=== PATIENT | male | born 1960 | race Caucasian/White ===

== ENCOUNTER 2023-03-08 08:02 | Emergency (ER) | payer BC, MEDICARE, SELFPAY ==
--- NOTE | 2023-03-08 08:23 | ED.WOUNDLAC ---
HPI - Wound/Laceration General Chief Complaint: Wound/Laceration Stated Complaint: Left hand finger burn Time Seen by Provider: 03/08/23 08:23 Source: patient Mode of arrival: ambulatory Limitations: no limitations History of Present Illness HPI narrative: 62 y/o male presented for c/o wounds to middle and ring fingertips on left hand after injury today. States he slipped on kitchen floor, and touched his hand on the hot stove. States skin turned white immediately. Skin is intact. He applied silver sulfadiazine cream to the site prior to arrival. Denies numbness, tingling, weakness or decreased ROM to hand/fingers. Rates pain 10. Related Data Home Medications Medication Instructions Recorded Confirmed hydrocodone 10 mg-acetaminophen tablet 03/08/23 325 mg tablet levothyroxine 100 mcg tablet mcg 03/08/23 losartan 25 mg tablet mg 03/08/23 pantoprazole 40 mg tablet,delayed mg PO 03/08/23 release simvastatin 20 mg tablet mg 03/08/23 Allergies Allergy/AdvReac Type Severity Reaction Status Date / Time morphine Allergy Intermediate Itching Verified 03/08/23 08:18 Review of Systems Review of Systems: CONSTITUTIONAL: Denies body aches, fever, chills, or sweats. EYES: Denies visual changes, redness, or discharge. ENT: Denies rhinorrhea, congestion CARDIOVASCULAR: Denies chest pain, palpitations, or edema. RESPIRATORY: Denies cough or dyspnea. GASTROINTESTINAL: Denies abdominal pain, nausea, vomiting, or diarrhea. SKIN: per HPI MUSCULOSKELETAL: Denies back pain, joint pain, or myalgia. NEUROLOGIC: Denies headache, numbness, tingling, or weakness. [facility] Past Medical History Medical History (Updated 03/08/23 @ 09:46 by Hilda Parikh APRN) Hypertension Surgical History Surgical History (Updated 03/08/23 @ 09:42 by Hilda Parikh APRN) History of carpal tunnel surgery History of repair of right rotator cuff History of total bilateral knee replacement Status post bilateral total hip replacement Comments At time of signature, I have reviewed and agree with nursing past medical, surgical, social and family history unless otherwise noted. Please see nursing chart for further information. There is no relevant family history pertinent to the presenting complaint Exam Narrative: GENERAL: Well-appearing HEAD: Normocephalic, atraumatic. EYES: conjunctivae clear, and EOMI. ENT: Mucous membranes moist. Oropharynx without edema, erythema or lesions. NECK: Supple. No lymphadenopathy CHEST: Clear to auscultation. HEART: Regular rate and rhythm. SKIN: Warm, dry. Left 3rd finger with 1.5x1cm diameter white blister/burn to distal tip, not raised or fluid filled; left 4th finger distal tip with approx 0.5cm diameter white/pink blister/burn, no fluid noted, skin intact NEURO: Alert and oriented x3. Course Course Emergency Course: Patient is aware of diagnosis, understands and agrees to treatment plan. Anticipatory guidance given. Patient agrees to follow-up as directed and is aware of reasons to seek care at the emergency department. Portions of this record may have been created with voice recognition software Level of Care: Express Care Visit Vital Signs Vital signs: Vital Signs Temperature 98.6 F 03/08/23 09:16 Pulse Rate 73 03/08/23 09:16 Respiratory Rate 18 03/08/23 09:16 Blood Pressure 135/92 H 03/08/23 09:16 Pulse Oximetry 99 03/08/23 09:16 Temperature 98.6 F 03/08/23 09:16 Pulse Rate 73 03/08/23 09:16 Respiratory Rate 18 03/08/23 09:16 Blood Pressure 135/92 H 03/08/23 09:16 Pulse Oximetry 99 03/08/23 09:16 Reviewed Procedures Orthopedic Splinting/Casting 3rd and 4th digits left hand: Upper Extremity Immobilizer: aluminum form splint (curved 1.5 inch) MDM - Wound/Laceration MDM Narrative Medical decision making narrative: Discussed physical exam findings. Sites cleansed with wound cleanser. Applied finger tip alumin
[2023-03-08] MEDS: TETANUS,DIPHTHERIA,AC PERTUSSIS ADULT (0.5 ML) BOOSTRIX IM (08:50)
[2023-03-08 09:16] VITALS: BP 135/92; PULSE 73; RESP 18; TEMP 37; O2SAT 99
== END 2023-03-08 09:05 | disposition home or self-care (01) ==
PROVIDERS: Emergency Provider Nurse Practitioner Family; PCP Internal Medicine
DX: T23.232A Burn of second degree of multiple left fingers (nail), not including thumb, initial encounter (principal); X15.0XXA Contact with hot stove (kitchen), initial encounter; Z23 Encounter for immunization; I10 Essential (primary) hypertension
CPT/HCPCS: 29130 ×2; 90471; 90715; 99213; G0463

== ENCOUNTER 2025-06-29 01:45 | Emergency (ER) | payer MEDICARE, SELFPAY ==
--- OUTSIDE RECORDS SUMMARY | 2025-06-29 01:48 | XMS_ITS | Clinical Summary ---
Author Organization [facility] Address [address] [place] [address] Care Team Providers Care Seo Assistant Name Role Phone Unavailable Primary Care Provider Unavailabl e Source Comments [facility],non-owned Affiliates and Associated Physician Practices is amultiple site organization consisting of ambulatory clinics and hospital sitesin [place], [place], [place] and [place]. This disclosure is being madepursuant to the Care Everywhere program and may not contain all information available regarding this patient. Last updated 18.[facility] Encounters Date Type Department Care Team Description 05/24/2025 Lab Requisition [facility] - DermPath Lab [address] [place] [address] Cherelle Cesar MD from Last 3 Months Social History Tobacco Use Types Packs/Day Years Used Date Smoking Tobacco: Never Assessed Sex and Gender Information Value Date Recorded Sex Assigned at Not on file Legal Sex Male 10:39 AM CDT Gender Identity Not on file Sexual Orientation Not on file Plan of Treatment Health Maintenance Due Date Last Done Comments COLOGUARD (AGES 45-75) - COL ON CA SCREENING 1958 COLON MONITORING 1958 COLONOSCOPY - COLON CA SCREENING 1958 CT COLONOGRAPHY - COLON CA SCREENING 1958 Colorectal Cancer Screening 1958 FIT - COLON CA SCREENING 1958 FLEX SIG - COLON CA SCREENING 1958 LIPID TESTING 1958 MEDICARE AWV 12 MONTHS 1958 HEPATITIS C SCREENING 05/08/1976 DTAP/TDAP/TD VACCINES (1 - Tdap) 1977 PNEUMOCOCCAL VACCINE 50+ (1 of 1 - PCV) 2008 ZOSTER VACCINE (1 of 2) 2008 DEPRESSION SCREENING 10/06/2024 COVID-19 VACCINE (2023-2 5 season) 2025 INFLUENZA VACCINE (#1) 2025 Respiratory Syncytial Virus (RSV) Vaccine Pt: or over 60 yrs (1 - 1-dose 75+ series) 2033 HEPATITIS B VACCINE Aged Out No longe r eligible based on patient's age to complete this topic HIB VACCINE Aged Out No longer eligi ble based on patient's age to complete this topic HPV VACCINE Aged Out No longer eligi ble based on patient's age to complete this topic MENINGOCOCCAL (Group B) VACC INE SHARED DECISION-MAKING Aged Out No longer eligibl e based on patient's age to complete this topic MENINGOCOCCAL GROUPS A/C/Y/W VACCINE Aged Out No longer eligible b ased on patient's age to complete this topic Procedures Procedure Name Priority Date/Time Associated Diagnosis Comments DERMATOPATHOLOGY Routine 05/24/2025 1:27 PM CDT from Last 3 Months Results * DERMATOPATHOLOGY (05/24/2025 1:27 PM CDT) Case Report Dermatopathology Report Case: [id number] Authorizing Provider: Cherelle Cesar MD Collected: 05/24/2025 01:27 PM Ordering Location: [facility] - Received: 05/25/2025 07:12 AM DermPath Lab Pathologist: Nohelia Elise MD Specimens: A) - Skin, crown B) - Skin, right shoulder 12:51 PM CDT DERMATOPATHOLOGY LABORATORY Final Diagnosis Specimen A. SKIN, crown: SQUAMOUS CELL CARCINOMA IN SITU, PRESENT AT THE BASE OF THE SPECIMEN (D04.4) (see microscopic description and comment) Specimen B. SKIN, right shoulder: HYPERPLASTIC (HYPERTROPHIC) ACTINIC KERATOSIS (L57.0) 12:51 PM CDT DERMATOPATHOLOGY LABORATORY at 1251 CDT Clinical History A: HAK; R/O SCC B: R/O BCC 12:51 PM CDT DERMATOPATHOLOGY LABORATORY Gross Description Specimen A: Received is one formalin filled container labeled with the patient's name and designated crown. The specimen consists of a shave biopsy measuring 2 pieces 5x2x1,4x4x1 mm. Jar 0. Specimen B: Received is one formalin filled container labeled with the patient's name and designated right shoulder. The specimen consists of a shave biopsy measuring 9x7x1 mm. Jar 0. 12:51 PM CDT DERMATOPATHOLOGY LABORATORY Microscopic Description Specimen A. SKIN, crown: The epidermis shows parakeratosis, full thickness disorderly maturation of keratinocytes, mitoses at different levels, and dyskeratotic cells. The lesion extends to the base of the biopsy. COMMENT: An invasive squamous cell carcinoma cannot be ruled out. Specimen B. SKIN, right shoulder: There is hyperkeratosis alternating with parakeratosis. There is epidermal hyperplasia with disorderly maturation of keratinocytes with nuclear pleomorphism confined to the lower half of the epidermis. 12:51 PM CDT DERMATOPATHOLOGY LABORATORY Disclaimer An external and internal positive and negative controls are appropriate for the histochemical, immunohistochemical and immunofluorescence stain(s) in this case (if any), except where stated explicitly. The performance characteristics of the stain(s) cited in this report were developed and its performance characteristic determined by the Dermatopathology Laboratory at [facility], directed by Dr. David Reyes. These tests need not be, and therefore are not, approved by the [place] Food and Drug Administration. The tests are used for clinical purposes. Billing Codes Specimen Charges Stain Charges 42514 75545 1 1 12:51 PM CDT DERMATOPATHOLOGY LABORATORY Embedded Images 12:51 PM CDT DERMATOPATHOLOGY LABORATORY Pathology/Cytology TISSUE SPECIMEN FROM SKIN / Unknown 05/24/2025 1:27 PM CDT 05/25/2025 7:12 AM CDT Miscellaneous samples (specimen) TISSUE SPECIMEN FROM SKIN / Unknown 05/24/2025 1:27 PM CDT 05/25/2025 7:12 AM CDT us Cherelle Cesar MD LAB - PATHOLOGY/CYTOLOGY ORD ERABLES Final Result DERMATOPATHOLOGY LABORATORY [facility] - Department of Dermatology [address], [address] [phone] from Last 3 Months Insurance MEDICARE
--- OUTSIDE RECORDS SUMMARY | 2025-06-29 01:48 | XMS_ITS | Clinical Summary ---
Author Organization [facility] Address [address] [address] Phone Care Team Providers Care Color Repairer Name Role Phone Riccardo Garcia MD Primary Care Provider [phone] Allergies Active Allergy Reactions Criticality Noted Date Comments Morphine Itching Low 10/04/2015 Medications aspirin EC 81 MG Tablet Delayed Response Take 81 mg by mouth daily. Active simvastatin (ZOCOR) 20 MG Tablet TAKE ONE TABLET BY MOUTH ONCE DAILY IN THE EVENING 02/28/20 17 Active Kittery-3 1000 MG Capsule Take 1 Tab by mouth daily. Active Calcium Polycarbophil (FIBER-CAPS PO) Take by mouth. Active FLUoxetine (PROzac) 20 MG Capsule Take 1 Tab by mouth as needed. Active losartan (COZAAR) 25 MG Tablet Take 50 mg by mouth daily. Breaking in half and taking 25mg 11/23/19 21 Active levothyroxine (SYNTHROID) 100 MCG Tablet Take 1 Tablet by mouth daily. 90 Tablet 1 07/04/20 23 Active meloxicam (MOBIC) 15 MG Tablet Take 1 Tablet by mouth daily. 90 Tablet 3 12/26/19 24 Active pantoprazole (PROTONIX) 40 MG Tablet Delayed Response Take 1 Tablet by mouth daily. 90 Tablet 1 10/11/19 25 Active tadalafil (CIALIS) 20 MG Tablet Take 1 Tablet by mouth as needed for Erectile Dysfunction (Once daily as needed). 8 Tablet 6 10/11/19 25 Active dorzolamide-timol ol (COSOPT) 2-0.5 % Solution 10/19/19 25 Active tamsulosin (FLOMAX) 0.4 MG Capsule 10/07/19 25 Active dutasteride (AVODART) 0.5 MG Capsule 10/07/19 25 Active azelastine (ASTELIN) 0.1 % Solution 2 Sprays by Nasal route 2 times daily. Use in each nostril as directed 30 mL 3 12/01/19 25 Active methylPREDNISolon e (MEDROL DOSPACK) 4 MG Tablet Therapy Pack Use as per instructions on package. 21 Tablet 12/01/19 25 Active HYDROcodone-aceta minophen (NORCO) 10-325 MG TabletIndications :Acute midline low back pain with sciatica, sciatica laterality unspecified Take 1 Tablet by mouth every 8 hours as needed for Moderate or more severe pain. 30 Tablet 04/12/20 25 Active Amoxicillin 500 MG Tablet Take 1 Tablet by mouth 3 times daily for 7 days. 21 Tablet 05/25/20 25 025 Active Problems Problem Noted Date Diagnosed Date Screening for colon cancer 12/02/2018 Right calf pain 06/15/2018 Gastroesophageal reflux disease without esophagi tis 04/17/2017 BRENDA on CPAP 04/17/2017 Bronchitis 01/06/2017 Acute maxillary sinusitis 05/27/2016 Midline low back pain 10/04/2015 Overview (10/18/2015): Chronic Erectile disorder due to medical condition in ma le patient 10/04/2015 Essential hypertension 10/04/2015 Acquired hypothyroidism 10/04/2015 Kidney stone Thyroid activity decreased Encounters Date Type Department Care Team Description 05/25/2025 Patient Outreach [facility] [address] [place] [address] Chapis Solano Care Management 05/25/2025 Telephone [facility] [place] [address] [place] [address] Riccardo Garcia MD Results 05/24/2025 [facility] [address] [place] [address] Riccardo Garcia MD Sinus Pain 05/19/2025 Patient Outreach [facility] [address] [place] [address] Curtis Luz Care Management 05/17/2025 2:30 PM CDT [facility] [place] [address] Riccardo Garcia MD Hypothyroidism, unspecified type (Primary Dx); Essential hypertension; Pure hypercholesterolemia; Erectile disorder due to medical condition in male patient; Screening for prostate cancer Discharge Disposition: Discharged to home or Selfcare 05/17/2025 Travel 05/10/2025 7:40 AM CDT Lab [facility] [address] [address] [facility] Hypothyroidism, unspecified type; Essential hypertension; Pure hypercholesterolemia Discharge Disposition: Discharged to home or Selfcare 05/10/2025 Travel 05/09/2025 Patient Outreach [facility] [address] [place] [address] Sarahi Collado 04/10/2025 MyChart RX Renewal [facility] [address] [place] [address] Riccardo Garcia MD Medication Renewal Reviewed from Last 3 Months Immunizations Immunization Administration Dates Next Due Covid-19, Mrna, Lnp-s, PF, 5 0 mcg/0.25 mL dose (Moderna) 07/14/2024 Covid-19, Mrna, Lnp-s, Pf, 3 0 Mcg/0.3 Ml Dose (Pfizer) 02/27/2021,02/06/2021 DTAP VACCINE 12/04/2006 Influenza Vaccine 06/27/2019 Influenza Vaccine greater than 3 yrs 07/10/2018, 07/15/2016,07/06/2014 Influenza Vaccine less than 3 yrs 07/19/2017 Influenza Vaccine, Quadrivalent, PF 07/08/2022,1 ,07/05/2020 Influenza, High-dose, Quadrivalent 07/02/2023 Influenza, Injectable, Quadrivalent 06/27/2019,1 Influenza, Seasonal, Injecta ble, Undefined 07/10/2018,07/19/2017,07/15/2016,07/06 Influenza, high-dose, trivalent, PF 07/14/2024 Pneumococcal Vaccine, Unspec ified Formulation 10/06/1997 Pneumococcal conjugate PCV20 , polysaccharide [id number] conjugate, adjuvant, PF 06/23/2023 RSV, Recombinant, Protein Johansen bunit Rsvpref, Adjuvant Recon (Arexvy) 07/08/2023 TDAP Vaccine 03/08/2023,05/05/2016 Zoster Vaccine Recombinant 11/18/2018,09/08/2018 Family History Medical History Relation Name Comments Cancer Brother 1 lung cancer Congestive Heart Failure Brother 2 Hypertension Brother 2 Asthma Daughter 1 Thyroid Disease Daughter 1 No Known Problems Daughter 2 Cancer Father lymphoma Congestive Heart Failure Father Cancer Maternal Cousin colon Cancer Maternal Grandfather melanom a Cancer Mother gyne Congestive Heart Failure Mother Diabetes Mother Hypertension Mother Cancer Sister skin cancer Other-comment Son bone disease Relation Name Status Comments Brother 1 Brother 2 Alive Daughter 1 Alive Daughter 2 Alive Father Maternal Cousin Alive Maternal Grandfather Mother Sister Alive Son Alive Social History Tobacco Use Types Packs/Day Years Used Date Smoking Tobacco: Never Smokeless Tobacco: Never Tobacco Cessation:Counseling Given: No Alcohol Use Standard Drinks/Week Comments Yes 2 (1 standard drink = 0.6 oz pur e alcohol) on occassion [facility] Utilities Answer Date Recorded In the past 12 months has [employer], gas, oil, or water [employer] threatened to shut off services in your home? No 11/05/2024 Social Connection and Isolation Panel Answer Date Recorded In a typical week, how many times do you talk on the phone with family, friends, or neighbors? More than three times a week 11/05/2024 How often do you get togethe r with friends or relatives? Twice a week 11/05/2024 How often do you attend chur ch or sikh services? Never 11/05/2024 Do you belong to any clubs o r organizations such as sikh groups, unions, fraternal or athletic groups, or school groups? No 11/05/2024 How often do you attend meet ings of the clubs or organizations you belong to? Never 11/05/2024 Are you , , di vorced, , never , or living with a partner? 11/05/2024 AUDIT-C Answer Date Recorded Q1: How often do you have a drink containing alcohol? Monthly or less 11/05/2024 Q2: How many drinks containi ng alcohol do you have on a typical day when you are drinking? Patient does not drink Q3: How often do you have si x or more drinks on one occasion? Never 11/05/2024 Overall Financial Resource Strain (CARDIA) Answe r Date Recorded How hard is it for you to pa y for the very basics like food, housing, medical care, and heating? Not hard at all 11/05/2024 PHQ-2 Answer Date Recorded Total Score - Questions 1-9 0 11/07 [facility] - Occupational Stress Questionnaire Answer Date Recorded Do you feel stress - tense, restless, nervous, or anxious, or unable to sleep at night because your mind is troubled all the time - these days? To some extent 09/19/2024 Exercise Vital Sign Answer Date Recorde d On average, how many days pe r week do you engage in moderate to strenuous exercise (like a brisk walk)? 2 days 11/05/2024 On average, how many minutes do you engage in exercise at this level? 20 min 11/05/2024 Hunger Vital Sign Answer Date Recorded Within the past 12 months, y ou worried that your food would run out before you got the money to buy more. Never true 11/05/19 25 Within the past 12 months, t he food you bought just didn't last and you didn't have money to get more. Never true 11/05/2024 PRAPARE - Transportation Answer Date Re corded In the past 12 months, has l ack of transportation kept you from medical appointments or from getting medications? No 10/08 In the past 12 months, has l ack of transportation kept you from meetings, work, or from getting things needed for daily living? No 11/05/2024 Housing Stability Vital Sign Answer Thuan e Recorded In the last 12 months, was t here a time when you were not able to pay the mortgage or rent on time? Yes 11/05/2024 Number of Times Moved in the Last Year Not on fi le 11/05/2024 At any time in the past 12 m [facility], were you homeless or living in a chcf (including now)? No 11/05/2024 Education Answer Date Recorded What is the highest level of school you have completed or the highest degree you have received? 12th grade 10/17/2020 Sex and Gender Information Value Date Recorded Sex Assigned at Not on file Legal Sex Male 11:53 PM CDT Gender Identity Not on file Sexual Orientation Not on file Last Filed Vital Signs Vital Sign Reading Time Taken Comments Blood Pressure 110/70 05/17/2025 2:23 PM CDT Pulse 73 05/17/2025 2:23 PM CDT Temperature 36.3 C (97.4 F) 05/17/2025 2:23 PM CDT Respiratory Rate 18 05/17/2025 2:23 PM CDT Oxygen Saturation 97% 05/17/2025 2:23 PM CDT Inhaled Oxygen Concentration - - Weight 113.4 kg (249 lb 14.4 oz) 05/17/2025 2:23 PM CDT Height 195.6 cm (6' 5) 05/17/2025 2:23 PM CDT Body Mass Index 29.63 05/17/2025 2:23 PM CDT Plan of Treatment Upcoming Encounters Date Type Department Care Team (Late st Contact Info) Description 11/10/2025 8:00 AM ASTRONOMY TEACHER Lab [facility] [address] [address] [facility]/Ancillary 11/17/2025 12:30 PM ASTRONOMY TEACHER [facility] [place] [address] [place] [address] Riccardo Garcia MD [address] [address] Health Maintenance Due Date Last Done Comments Hepatitis C Virus (HCV) Screening 1960 Cologuard 2003 Immunochemical Fecal Occult Blood 2003 Influenza Immunization (#1) 2025 10/0 06/2024, 07/02/2023, 07/08/2022, Additional history exists SARS-COV-2 Immunization ( season) 2025 07/14/2024, 08/05/2022, 09/26/2021, Additional history exists Colonoscopy 07/31/2033 07/31/2023, 12/23/2018 Colorectal Cancer Screening 07/31/2033 Zoster Immunization Completed 11/18/2018, 8 DTaP/Tdap/Td Immunization Discontinued 2022, 05/05/2016, 12/04/2006 Pneumococcal Immunization (50+ years) Completed 06/23/2023, 10/06/1997 Pneumococcal Immunization Combined Discontinued 06/23/2023, 10/06/1997 Respiratory Syncytial Virus (RSV) Immunization (Adult) Completed 07/08/2023 PSA Discussion Completed 01/12/2024, 07/01/2022 Hepatitis B Immunization Aged Out No longer eligible based on patient's age to complete this topic Human Papillomavirus (HPV) Immunization Aged Out No longer eligible based on patient's age to complete this topic Meningococcal Immunization (ACWY) Aged Out No longer eligible based on patient's age to complete this topic Rotavirus Immunization Aged Out No lo nger eligible based on patient's age to complete this topic Procedures Procedure Name Priority Date/Time Associated Diagnosis Comments LIPID PANEL Routine 05/10/2025 7:27 AM CDT Essential hypertension Pure hypercholesterolemia CMP (COMPREHENSIVE METABOLIC PANEL) Routine 05/10/2025 7:27 AM CDT Essential hypertension Pure hypercholesterolemia THYROID STIMULATING HORMONE (TSH) Routine 05/10/2025 7:27 AM CDT Hypothyroidism, unspecified type PSA SCREEN Routine 01/12/2024 8:12 AM CDT Screening for prostate cancer from Last 3 Months or Most Recently Relevant to Health Maintenance Results * THYROID STIMULATING HORMONE (TSH) (05/10/2025 7:27 AM CDT) TSH 1.045 0.300 - 5.000 mIU/L 05/10/2025 1:19 PM CDT [facility] Blood Venipuncture / Unknown 05/10/2025 7:27 AM CDT 05/10/2025 7:27 AM CDT Riccardo Garcia MD CHEMISTRY ORDERABLES Final Re sult Performing Organization Address City/[facility] Co de Phone Number [facility] [address] [place] [address] * (ABNORMAL) LIPID PANEL (05/10/2025 7:27 AM CDT) CHOLESTEROL 133 <200 mg/dL 05/10/2025 1:09 PM CDT [facility] TRIGLYCERIDES 30 <150 mg/dL 05/10/2025 1:09 PM CDT [facility] HDL CHOLESTEROL 60 >40 mg/dL 1:09 PM CDT [facility] LDL 67 <130 mg/dL 05/10/2025 1:09 PM CDT [facility] VLDL 6(L) 10 - 50 mg/dL 05/10/2025 1:09 PM CDT [facility] CHOL/HDL RATIO 2.2 0.0 - 4.4 05/10/2025 1:09 PM CDT [facility] NON-HDL CHOLESTEROL 73 <130 mg/dL 05/10/2025 1:09 PM CDT [facility] IS THE PATIENT REQUIRED TO BE FASTING? No 05/10/2025 1:09 PM CDT [facility] Blood Venipuncture / Unknown 05/10/2025 7:27 AM CDT 05/10/2025 7:27 AM CDT Riccardo Garcia MD CHEMISTRY ORDERABLES Final Re sult Performing Organization Address City/[facility]/ZIP Co de Phone Number [facility] [address] [place] [address] * (ABNORMAL) CMP (COMPREHENSIVE METABOLIC PANEL) (05/10/2025 7:27 AM CDT) Pathologist [facility] SODIUM 140 136 - 145 mmol/L 05/10/2025 1:09 PM CDT [facility] POTASSIUM 4.2 3.5 - 5.1 mmol/L 05/10/2025 1:09 PM T [facility] CHLORIDE 107 98 - 107 mmol/L 05/10/2025 1:09 PM [facility] CO2, VENOUS 25 22 - 30 mmol/L 05/10/2025 1:09 PM CDT [facility] ANION GAP 12.2 <18.0 mmol/L 05/10/2025 1:09 PM T [facility] GLUCOSE 103(H) 70 - 99 mg/dL 05/10/2025 1:09 PM T [facility] BUN 17 8 - 26 mg/dL 05/10/2025 1:09 PM [facility] CREATININE, BLOOD 1.05 0.70 - 1.30 mg/dL 05/10/2025 1:09 PM T [facility] BUN/CREATININE RATIO 16 12 - 20 ratio 05/10/2025 1:09 PM [facility] TOTAL PROTEIN 7.1 6.0 - 8.0 g/dL 05/10/2025 1:09 PM T [facility] ALBUMIN 4.1 3.5 - 5.0 g/dL 05/10/2025 1:09 PM T [facility] A/G RATIO 1.4 1.0 - 2.2 05/10/2025 1:09 PM T [facility] CALCIUM 9.1 8.7 - 10.5 mg/dL 05/10/2025 1:09 PM T [facility] T BILI 0.8 0.2 - 1.2 mg/dL 05/10/2025 1:09 PM T [facility] SGOT (AST) 35 <43 U/L 05/10/2025 1:09 PM T [facility] SGPT (ALT) 22 <56 U/L 05/10/2025 1:09 PM CDT [facility] ALKALINE PHOSPHATASE 64 40 - 150 U/L 05/10/2025 1:09 PM CDT [facility] IS THE PATIENT REQUIRED TO BE FASTING? No 05/10/2025 1:09 PM CDT [facility] GFR, ESTIMATED >60 >=60 05/10/2025 1:09 PM CDT [facility] Comment: Creatinine Clearance is the preferred criteria for selecting drug dose adjustments in renally impaired patients. The GFR is provided as additional pertinent clinical information. GFR is reported in mL/min/1.73 sq m. Calculation based on the Chronic Kidney Disease Epidemiology Collaboration (CKD- EPI) equation refit without adjustment for race. GFR, EST. >60 >=60 025 1:09 PM CDT [facility] GFR, EST. NONAFRICAN >60 >=60 05/10/2025 1:09 PM CDT [facility] Blood Venipuncture / Unknown 05/10/2025 7:27 AM CDT 05/10/2025 7:27 AM CDT Riccardo Garcia MD CHEMISTRY ORDERABLES Final Re sult [facility] [address] [place] [address] * PSA SCREEN (01/12/2024 8:12 AM CDT) PSA SCREEN, TOTAL 1.01 <4.00 ng/mL 01/12/2024 12:42 PM CDT [facility] Blood Venipuncture / Unknown 01/12/2024 8:12 AM CDT 01/12/2024 8:12 AM CDT Narrative [facility] - 01/12/2024 12:42 PM CDT The ALINITY Total PSA assay is a Chemiluminescent Microparticle Immunoassay (CMIA) for the quantitative determination of total PSA (both free PSA and PSA complexed to [id number]) in human serum. Total PSA values obtained with different assay methods, including Granda PSA assays, cannot be used interchangeably. Riccardo Garcia MD CHEMISTRY ORDERABLES Final Re sult [facility] [address] [place] [address] from Last 3 Months or Most Recently Relevant to Health Maintenance Insurance MEDICARE [facility] Care Teams Color Repairer Relationship Specialty Start Date End Date Riccardo Garcia MD [address] [address] PCP - General Family Medicine 09/27/15
--- OUTSIDE RECORDS SUMMARY | 2025-06-29 01:48 | XMS_ITS | Encounter Summary ---
Author Organization [facility] Address [address] [place] [address] Care Team Providers Care Agricultural Economist Name Role Phone Unavailable Primary Care Provider Unavailabl e Encounter Details Date Type Department Care Team (Late st Contact Info) Description 05/21/2023 Lab Requisition [facility] D[facility] Lab [address] [place] [address] Shania Rojas APRN-BOX STRAPPER [address] [place] [address] Social History Tobacco Use Types Packs/Day Years Used Date Smoking Tobacco: Never Assessed Sex and Gender Information Value Date Recorded Sex Assigned at Not on file Legal Sex Male 10:39 AM CDT Gender Identity Not on file Sexual Orientation Not on file documented as of this encounter Plan of Treatment Not on file documented as of this encounter Procedures Procedure Name Priority Date/Time Associated Diagnosis Comments DERMATOPATHOLOGY Routine 05/21/2023 10:3 1 AM CDT documented in this encounter Results * DERMATOPATHOLOGY (05/21/2023 10:31 AM CDT) Case Report Dermatopathology Report Case: [id number] Authorizing Provider: Shania Rojas, Collected: 05/21/2023 10:31 AM [employer] ARCHITECT-BOX STRAPPER Ordering Location: [facility] D[facility] Lab Received: 05/21/2023 03:49 PM Pathologist: Nohelia Elise MD Specimen: Skin, anterior crown 1:14 PM CDT DERMATOPATHOLOGY LABORATORY Final Diagnosis Specimen A. SKIN, anterior crown: BLUE NEVUS, COMMON TYPE (D22.9) 1:14 PM CDT DERMATOPATHOLOGY LABORATORY at 1314 CDT Clinical History Lentigo R/O LM, Growing 3 1:14 PM CDT DERMATOPATHOLOGY LABORATORY Gross Description Specimen A: Received is one formalin filled container labeled with the patient's name and designated anterior crown. The specimen consists of a shave biopsy measuring 4x4x1 mm. Jar 0. 1:14 PM CDT DERMATOPATHOLOGY LABORATORY Microscopic Description Specimen A. SKIN, anterior crown: Within the dermis there are oval, spindle-shaped and dendritic melanocytes with melanophages. 3 1:14 PM CDT DERMATOPATHOLOGY LABORATORY Disclaimer An external and internal positive and negative controls are appropriate for the histochemical, immunohistochemical and immunofluorescence stain(s) in this case (if any), except where stated explicitly. The performance characteristics of the stain(s) cited in this report were developed and its performance characteristic determined by the Dermatopathology Laboratory at [facility], directed by Dr. David Reyes. These tests need not be, and therefore are not, approved by the [place] Food and Drug Administration. The tests are used for clinical purposes. Billing Codes Specimen Charges Stain Charges 07402 1 1:14 PM CDT DERMATOPATHOLOGY LABORATORY Embedded Images 1:14 PM CDT DERMATOPATHOLOGY LABORATORY Pathology/Cytolo gy TISSUE SPECIMEN FROM SKIN / Unknown 05/21/2023 10:31 AM CDT 05/21/2023 3:49 PM CDT Shania Ivon Bob [employer] ARCHITECT-[facility] - PATHOLOGY/CY TOLOGY ORDERABLES Final Result DERMATOPATHOLOGY LABORATORY [facility] - Department of Dermatology [facility] Medicine [address] [place] [address], [address] [phone] documented in this encounter Visit Diagnoses Not on filedocumented in this encounter
--- OUTSIDE RECORDS SUMMARY | 2025-06-29 01:48 | XMS_ITS | Encounter Summary ---
Author Organization [facility] Address [address] [place] [address] Care Team Providers Care Gallery Or Museum Technician Name Role Phone Riccardo Garcia MD Primary Care Provider [phone] Encounter Details Date Type Department Care Team (Late st Contact Info) Description 08/25/2000 Outpatient Historical [facility] Derian Ragland MD Social History Tobacco Use Types Packs/Day Years Used Date Smoking Tobacco: Never Assessed Sex and Gender Information Value Date Recorded Sex Assigned at Not on file Legal Sex Male 5:36 AM FLIGHT/TRANSPORT NURSE Gender Identity Not on file Sexual Orientation Not on file documented as of this encounter Plan of Treatment Upcoming Encounters Date Type Department Care Team (Late st Contact Info) Description 08/18/2025 10:30 AM FLIGHT/TRANSPORT NURSE Office Visit [facility] [address] - Ophthalmology [address] [place] [address] Kadi Villanueva, FERNANDO [address] [place] [address] 02/14/2026 9:00 AM CDT Office Visit [facility] [address] [place] [address] Ramon Hanna MD [address] [place] [address] documented as of this encounter Visit Diagnoses Not on filedocumented in this encounter Care Teams Gallery Or Museum Technician Relationship Specialty Start Date End Date Riccardo Garcia MD [address] [address] PCP - General 04/27/09 documented as of this encounter
--- OUTSIDE RECORDS SUMMARY | 2025-06-29 01:48 | XMS_ITS | Encounter Summary ---
Author Organization [facility] Address [address] [place] [address] Phone Care Team Providers Care Soap Drier Operator Name Role Phone Riccardo Garcia MD Primary Care Provider [phone] Reason for Visit * Reason Comments Medication Refill Encounter Details Date Type Department Care Team (Late st Contact Info) Description 04/19/2021 Refill [facility] - Family Medicine [facility] [address] [place] [address] Riccardo Garcia MD [address] [address] Medication Refill Social History Tobacco Use Types Packs/Day Years Used Date Smoking Tobacco: Never Smokeless Tobacco: Never Alcohol Use Standard Drinks/Week Comments Yes 2 (1 standard drink = 0.6 oz pur e alcohol) on occassion PHQ-2 Answer Date Recorded Total Score - Questions 1-9 0 06/08 Education Answer Date Recorded What is the highest level of school you have completed or the highest degree you have received? 12th grade 10/17/2020 Sex and Gender Information Value Date Recorded Sex Assigned at Not on file Legal Sex Male 11:53 PM CDT Gender Identity Not on file Sexual Orientation Not on file documented as of this encounter Miscellaneous Notes * Telephone Encounter - Riccardo Garcia MD - 04/20/2021 9:59 AM CDT Prescription approved. Please call in * Telephone Encounter - January Gill RN - 04/20/2021 9:54 AM CDT Please review Pharmacy note on Rx documented in this encounter Plan of Treatment Upcoming Encounters Date Type Department Care Team (Late st Contact Info) Description 11/10/2025 8:00 AM LIFT TRUCK OPERATOR Lab [facility] [address] [address] Michael Acevedo Lab/Ancillary 11/17/2025 12:30 PM LIFT TRUCK OPERATOR Office Visit [facility] - Family Medicine - [place] [address] [place] [address] Riccardo Garcia MD [address] [address] documented as of this encounter Visit Diagnoses Not on filedocumented in this encounter Additional Health Concerns Infection Onset Date Last Indicated Resolved Time COVID - 19 09/30/2023 09/30/2023 10/10/2023 12:1 6 AM LIFT TRUCK OPERATOR Assessment Noted Time PHQ-9 Depression Total Score: 0 07/05/20 20 7:21 AM CDT documented as of this encounter Care Teams Soap Drier Operator Relationship Specialty Start Date End Date Riccardo Garcia MD [address] [address] PCP - General Family Medicine 09/27/15 documented as of this encounter
--- OUTSIDE RECORDS SUMMARY | 2025-06-29 01:48 | XMS_ITS | Encounter Summary ---
Author Organization [facility] [employer] [facility] Address [address] [place] [address] Phone Care Team Providers Care Fire Sprinkler Apparatus Inspector Name Role Phone Genaro Dale MD Unavailable [phone] Genaro Dale MD Unavailable [phone] Genaro Dale MD Primary Care Provider [phone] Jas Correia MD Primary Care Provider Encounter Details Date Type Department Care Team (Late st Contact Info) Description 02/13/2022 Orders Only [facility] [phone] Scanning, Provider Social History Tobacco Use Types Packs/Day Years Used Date Smoking Tobacco: Never Smokeless Tobacco: Never Alcohol Use Standard Drinks/Week Comments Yes 1 (1 standard drink = 0.6 oz pur e alcohol) 2-3 month AUDIT-C Answer Date Recorded Q1: How often do you have a drink containing alc ohol? Monthly or less 09/07/2021 Q2: How many drinks containi ng alcohol do you have on a typical day when you are drinking? 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 Gender Identity Not on file Sexual Orientation Not on file Occupation Industry Job Start Date Job End Date Disabled Not on file Not on file Not on file documented as of this encounter Plan of Treatment Not on file documented as of this encounter Procedures Procedure Name Priority Date/Time Associated Diagnosis Comments SCAN - RADIOLOGY/IMAGING 02/13/2022 documented in this encounter Results * SCAN - RADIOLOGY/IMAGING (02/13/2022) Anatomical Region Laterality Modality Other us Provider Scanning Final Result documented in this encounter Visit Diagnoses Not on filedocumented in this encounter Care Teams Fire Sprinkler Apparatus Inspector Relationship Specialty Start Date End Date Genaro Dale MD [address] [place] [address] PCP - General Endocrinology Diabetes & Metabolism 12/11/20 02/19/22 Jas Correia MD [address] [place] [address] PCP - General Endocrinology Diabetes & Metabolism 02/20/22 Genaro Dale MD [address] [place] [address] Consulting Physician Endocrinology Diabetes & Metabolism 07/31/20 Genaro Dale MD [address] [place] [address] Consulting Physician Endocrinology Diabetes & Metabolism 11/22/20 documented as of this encounter
--- OUTSIDE RECORDS SUMMARY | 2025-06-29 01:48 | XMS_ITS | Clinical Summary ---
Author Organization [facility] Address [address] [place] [address] Care Team Providers Care Final Coat Sprayer Name Role Phone Genaro Dale MD Unavailable [phone] Genaro Dale MD Unavailable [phone] Jas Correia MD Primary Care Provider Allergies Active Allergy Reactions Criticality Noted Date Comments Morphine Itching Low Medications zolpidem CR (AMBIEN CR) 12.5 mg CR tabletIndicatio ns:Insomnia Take 1 tablet (12.5 mg total) by mouth nightly as needed for sleep Active ALPRAZolam (XANAX) 0.5 mg tabletIndicatio ns:anxiety Take 1 tablet (0.5 mg total) by mouth as needed for anxiety [address] (PROTONIX) 40 mg EC tabletIndicatio ns:Treatment of Non-Bleeding Gastric Disorder Take 1 tablet (40 mg total) by mouth nightly 0 Active FIBER, DEXTRIN, ORALIndications :constipation Take 4 tablets by mouth every morning Active losartan (COZAAR) 25 mg tabletIndicatio ns:hypertension Take 1 tablet (25 mg total) by mouth daily with breakfast 2 Active CALCIUM ORALIndications :supplement Take 1 tablet by mouth every morning Active cholecalciferol , vitamin D3, (VITAMIN D3 ORAL) Take 1 tablet by mouth every morning Active simvastatin (ZOCOR) 20 mg tabletIndicatio ns:hyperlipidem ia Take 1 tablet (20 mg total) by mouth nightly 3 03/05/20 27 Active aspirin 81 mg enteric coated tabletIndicatio ns:prevention of thrombosis Take 1 tablet (81 mg total) by mouth 2 (two) times a day 60 tablet 3 Active meloxicam (MOBIC) 15 mg tablet Take 1 tablet (15 mg total) by mouth daily 30 tablet 2 3 Active HYDROcodone-gregor taminophen (NORCO) 10-325 mg per tablet TAKE 1 TABLET BY MOUTH EVERY 8 HOURS NEEDED FOR MODERATE OR MORE SEVERE PAIN 3 Active FLUoxetine (PROzac) 20 mg capsule TAKE 1 CAPSULE (20 MG) TWICE A DAY 3 Active tadalafiL (CIALIS) 20 mg tablet Take 0.5 tablets (10 mg total) by mouth daily as needed 3 Active levothyroxine (SYNTHROID) 100 mcg tablet TAKE 1 TABLET BY MOUTH EVERY DAY 90 tablet 3 4 Active amoxicillin 500 mg capsule TAKE 4 CAPS BY MOUTH 1 HOUR PRIOR TO APPOINTMENT 4 Active tamsulosin (FLOMAX) 0.4 mg extended release capsule TAKE ONE CAPSULE BY MOUTH EVERY DAY 90 capsule 1 5 Active dutasteride (AVODART) 0.5 mg capsule TAKE ONE CAPSULE BY MOUTH EVERY DAY 90 capsule 1 5 Active Active Problems Problem Noted Date Diagnosed Date Benign prostatic hyperplasia with nocturia 07/05 Assessment & Plan (07/05/2024 1:57 PM CDT): Can double tamsulosin dose for 1-2 weeks. If not effective, will lower dose back to 0.4 mg daily and add dutasteride. Medicare annual wellness visit, subsequent 07/05 Assessment & Plan (07/05/2024 2:47 PM CDT): Exercise 30 minutes per day 5x weekly. Eat heart healthy (Mediterranean) diet of fruits, vegetables, and whole grains; avoid saturated fats and excess sweets. Colonoscopy due in 2032. PSA due today. Recommended COVID and flu shots. Dysphagia 06/23/2023 Assessment & Plan (07/05/2024 2:47 PM CDT): Workup negative. Colon cancer screening 06/23/2023 Carpal tunnel syndrome of right wrist 10/03/2022 Overview (10/03/2022): Added automatically from request for surgery [id number] Encounter for Medicare annual wellness exam 05/07 Assessment & Plan (06/23/2023 2:35 PM CDT): Colonoscopy ordered. Check PSA today. I recommended the following vaccinations: [id number] for pneumonia (gave today) Flu shot COVID shot RSV shot Assessment & Plan (06/03/2022 1:58 PM CDT): Continue overall healthy lifestyle. He is UTD on colonoscopies. Check PSA today. Recommended new COVID vaccine this fall along with flu shot. Primary osteoarthritis of right hip 06/29/2021 Overview (06/29/2021): Added automatically from request for surgery [id number] History of MA (myocardial infarction) 09/11/2020 1st degree AV block 09/11/2020 Elevated lipids 09/11/2020 Assessment & Plan (07/05/2024 1:55 PM CDT): At goal on current therapy. Assessment & Plan (06/23/2023 2:35 PM CDT): At goal on current therapy. Assessment & Plan (06/03/2022 1:57 PM CDT): At goal on current therapy. BRENDA on CPAP 09/11/2020 Primary osteoarthritis of left hip 08/02/2020 Overview (08/02/2020): Added automatically from request for surgery [id number] Shortness of breath 02/15/2020 Assessment & Plan (06/23/2023 2:36 PM CDT): Has appt with cardiology this week and will likely need stress test. Carpal tunnel syndrome of left wrist 11/15/2019 Overview (11/15/2019): Added automatically from request for surgery [id number] Cubital tunnel syndrome on left 11/15/2019 Overview (11/15/2019): Added automatically from request for surgery [id number] Hypothyroidism 11/30/2012 Overview (01/10/2017): Thyroid activity decreased Assessment & Plan (07/05/2024 2:46 PM CDT): Check TSH today on levothyroxine. Assessment & Plan (06/03/2022 1:58 PM CDT): Continue levothyroxine 75 mcg daily. Essential hypertension 11/30/2012 Overview (01/10/2017): High blood pressure Assessment & Plan (07/05/2024 1:49 PM CDT): At goal on current therapy. Assessment & Plan (06/23/2023 2:36 PM CDT): At goal on current therapy. Assessment & Plan (06/03/2022 1:58 PM CDT): At goal on current therapy. Resolved Problems Problem Noted Date Diagnosed Date Resolved Date Arthritis of left knee 11/27/202203/09 Primary osteoarthritis of left knee 08/09/2022 03/09/2023 Overview (08/09/2022): Added automatically from request for surgery [id number] Primary osteoarthritis of right knee 07/02/2022 03/09/2023 Overview (07/02/2022): Added automatically from request for surgery [id number] Fatigue 03/25/2022 03/09/2023 Assessment & Plan (03/25/2022 2:42 PM CDT): Labs today COVID toes 11/06/2021 03/09/2023 Midline low back pain 10/04/20152022 Overview (11/22/2020): Chronic Back pain 11/30/2012 03/09/2023 Overview (01/10/2017): Backache, unspecified Varicose vein of leg 05/08/2010 023 Encounters Date Type Department Care Team Description 04/14/2025 9:30 AM CDT Telemedicine [facility] [address] [place] [address] Russ Marinelli PA Essential hypertension (Primary Dx); BRENDA on CPAP; History of MA (myocardial infarction) 04/14/2025 Telephone [facility] [address] [place] [address] Marta Chanel CMA from Last 3 Months Immunizations Immunization Administration Dates Next Due DTaP 12/04/2006 Influenza, Quadrivalent, Spl it, Intramuscular 06/27/2019,07/11/2017 Influenza, Quadrivalent, Spl it, Preservative Free, Intramuscular 07/08/2022,07/06/2021,07/05/2020 Influenza, Trivalent, IM (MDV) 8,07/19/2017,07/15/2016,07/06 Influenza, Trivalent, Preser vative Free, Intramuscular 06/27/2019 Pfizer SARS-CoV-2 Monovalent Vaccination (12+ Yrs) PURPLE 02/27/2021,02/06/2021 Pneumococcal Conjugate Pcv20 06/23/2023 Tdap 03/08/2023,05/05/2016 Varicella Zoster Immune Globulin 09/24/2018,08/07 ZOSTER Recombinant 11/18/2018,09/08/2018 Surgical History Surgery Date Site/Laterality Comments KNEE SURGERY Bilateral knee surgery x 5 SHOULDER SURGERY Right LA APPENDECTOMY Appendectomy - (Added by TW Conv) SPINE SURGERY lumbar CARPAL TUNNEL RELEASE 10/06/2019 - 10/05/2020 Left left carpal tunnel release extended Revision, left ulnar nerve subfascial transposistion VARICOSE VEIN SURGERY REFRACTIVE SURGERY Bilateral SQUAMOUS CELL CARCINOMA EXCISION resection from the top of head BICEPS TENDON REPAIR Bilateral FLUORO GUIDED ASPIRATION OR INJECTION LARGE JOINT BILATERAL 04/24/2020 Bilateral HIP SURGERY 10/06/2020 - 10/05/2021 Right ARTHROPLASTY RIGHT TOTAL HIP - ANTERIOR APPROACH - JOINT REPLACEMENT 08/23/2022 Right Total Knee Replacment HIP SURGERY 10/06/2019 - 10/05/2020 Left ARTHROPLASTY LEFT TOTAL HIP - ANTERIOR APPROACH CARDIAC CATHETERIZATION 10/06/2020 - 10/05/2021 ESOPHAGOGASTRODUODENOSCOPY 10/06/2018 - 10/05/2019 COLONOSCOPY 10/06/2018 - 10/05/2019 EXTRACORPOREAL SHOCK WAVE LITHOTRIPSY 10/06/2014 - 10/05/2015 CARPAL TUNNEL RELEASE Right ULNAR NERVE REPAIR Right LASIK Medical History Medical History Date Comments Hypertension Kidney stone Sleep apnea CPAP Pure hypercholesterolemia High c holesterol - (Added by TW Conv) Old myocardial infarction 2009 Histor y of myocardial infarction Gastro-esophageal reflux dis ease without esophagitis well controlled Hypothyroidism 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 Alleivated with scopolamine patches in the past. PONV (postoperative nausea and vomiting) CAD (coronary artery disease) ca 2020 in care everywhere- no h/o intervention Cancer (HCC) Anxiety Arthritis Family History Medical History Relation Name Comments Lung cancer Brother 1 Malignant Neopl asm Bronchus and Lung - (Added by TW Conv) Heart disease Brother 2 evelyn Family history of cardiac disorder - (Added by TW Conv) Hypertension Brother 3 Family history of hypertension - (Added by TW Conv) Arthritis Father mateo Family history of arthritis - (Added by TW Conv) Cancer Father mateo Cancer - (Added by TW Conv)/Family history of malignant neoplasm - (Added by TW Conv) Gout Father mateo Family history of gout - (Added by TW Conv) Heart disease Father mateo Heart Disease - (Added by TW Conv)/Family history of cardiac disorder - (Added by TW Conv) Kidney disease Father mateo Family histor y of kidney disease - (Added by TW Conv) Cancer Mother Марина Cancer - (Added by TW Conv)/Family history of malignant neoplasm - (Added by TW Conv) Diabetes Mother Марина Family history of diabetes mellitus - (Added by TW Conv) Heart disease Mother Марина Heart Disease - (Added by TW Conv)/Family history of cardiac disorder - (Added by TW Conv) Hypertension Mother Марина Family history of hypertension - (Added by TW Conv) Lung disease Mother Марина Family history of lung disease - (Added by TW Conv) Stroke Mother Марина Stroke Syndrome - (Added by TW Conv)/Family history of cerebrovascular accident - (Added by TW Conv) Heart disease Other 1 Family history of Heart disease; Hypertension Other 2 Family history of high blood press; Other Other 3 Family history of Cancer, uterine; Leukemia Other 4 Family history of Leukemia; Skin cancer Other 5 Family history of cancer, skin; Anesthesia problems Neg Hx Relation Name Status Comments Brother 1 Brother 2 evelyn Brother 3 Father mateo Mother Марина Other 1 Other 2 Other 3 Other 4 Other 5 Social History Tobacco Use Types Packs/Day Years Used Date Smoking Tobacco: Never Smokeless Tobacco: Never Tobacco Cessation:Counseling Given: Not Answered Alcohol Use Standard Drinks/Week Comments Yes 1 (1 standard drink = 0.6 oz pur e alcohol) 2-3 month AUDIT-C Answer Date Recorded Q1: How often do you have a drink containing alc ohol? Monthly or less 07/31/2023 Q2: How many drinks containi ng alcohol do you have on a typical day when you are drinking? 1 or 2 07/31/2023 Q3: How often do you have si x or more drinks on one occasion? Never 07/31/2023 PHQ-2 Answer Date Recorded PHQ-2 Total Score (If total score is 3 or more points, staff should administer the PHQ-9) 0 06/23/2023 Exercise Vital Sign Answer Date Recorde d On average, how many days pe r week do you engage in moderate to strenuous exercise (like a brisk walk)? 5 days 06/03/2022 On average, how many minutes do you engage in exercise at this level? 30 min 06/03/2022 Personal Safety Answer Date Recorded Have you ever been in or are you currently in a harmful physical or emotional relationship or is someone making you feel afraid or unsafe? Denies 07/31/2023 Sex and Gender Information Value Date Recorded Sex Assigned at Not on file Legal Sex Male 2:48 AM KAYAK MA[employer] Gender Identity Not on file Sexual Orientation Not on file Occupation Industry Job Start Date Job End Date Disabled Not on file Not on file Not on file Obstetrics History Last Filed Vital Signs Vital Sign Reading Time Taken Comments Blood Pressure 121/78 07/05/2024 1:07 PM CDT Pulse 69 07/05/2024 1:07 PM CDT Temperature 36.2 C (97.2 F) 07/31/2023 9:43 AM CDT Respiratory Rate 16 07/31/2023 9:55 AM CDT Oxygen Saturation 96% 07/31/2023 10: 05 AM CDT Inhaled Oxygen Concentration - - Weight 110.1 kg (242 lb 12.8 oz) 07/05/2024 1:07 PM CDT Height 195.6 cm (6' 5) 07/05/2024 1:07 PM CDT Body Mass Index 28.79 07/05/2024 1:07 PM CDT Plan of Treatment Health Maintenance Due Date Last Done Comments Hepatitis B Screening 1978 Depression Screening 06/23/2024 06/23/2023, 06/03/20 22 Fall Risk Assessment 07/31/2024 07/31/2023, 06/23/2023, 06/03/2022 Covid-19 Vaccine (4 - 2024-2 6 season) 2025 07/14/2024, 02/27/2021, 02/06/2021 Influenza Vaccine (#1) 2025 , 07/08/2022, 07/06/2021, Additional history exists Well Visit 65+ 07/05/2025 07/05/2024, 06/06, 06/03/2022, Additional history exists Prostate Cancer Screening-PSA 07/05/2026, 06/23/2023, 06/03/2022, Additional history exists DTaP/Tdap/Td Vaccine (4 - Td or Tdap) 03/08/2033 03/08/2023, 05/05/2016, 12/04/2006 Colon Cancer Screening-Colonoscopy 07/31/2033 07/31/2023, 05/06/2012, 04/10/2010 Zoster Vaccine Completed 11/18/2018, 09/08/2018 Hepatitis C Screening Completed 06/23/2023 Pneumococcal vaccine 65+ Completed 06/23/2023 Colon Cancer Screening-CT Colonography Discontinued 07/31/2023, 05/06/2012, 04/10/2010 Colon Cancer Screening-DNA Stool Discontinued 07/31/2023, 05/06/2012, 04/10/2010 Colon Cancer Screening-FIT Discontinued 07/31, 05/06/2012, 04/10/2010 Colon Cancer Screening-Sigmoidoscopy Discontinued 07/31/2023, 05/06/2012, 04/10/2010 Medical Devices Implanted Type Area Poultry Packer Device Identifier Shelf Expiration Date Model / Serial / Lot [employer] [id number] Procotyl Prime 58mm Shell Acetabular Sterile - Sn/A - [id number] Implanted:Qty: 1 on 09/12/2020 by Ramon Hernandez MD at [facility] Other - see comments Left: Hip [employer] [id number] 04/12/2028 [id number] / N/A / [id number] [employer] [id number] Procotyl Prime 36mm Liner Acetabular Sterile Latex Free - Sn/A - [id number] Implanted:Qty: 1 on 09/12/2020 by Ramon Hernandez MD at [facility] Other - see comments Left: Hip [employer] [id number] 10/13/2026 [id number] / N/A / [id number] [employer] [id number] Tl2 Hip 11 High Offset Stem Femoral Sterile Latex Free - Sn/A - [id number] Implanted:Qty: 1 on 09/12/2020 by Ramon Hernandez MD at [facility] Other - see comments Left: Hip [employer] [id number] 09/13/2027 [id number] / N/A / [id number] [employer] [id number] Procotyl 36mm 12/14 Large Head Femoral Biolox Delta Sterile - Sn/A - [id number] Implanted:Qty: 1 on 09/12/2020 by Ramon Hernandez MD at [facility] Other - see comments Left: Hip [employer] [id number] 05/11/2028 [id number] / N/A / [id number] [employer] [id number] Procotyl Prime Od60 Mm Shell Acetabular Sterile - Sna - [id number] Implanted:Qty: 1 on 09/07/2021 by Ramon Hernandez MD at [facility] Other - see comments Right: Hip [employer] [id number] 01/15/2029 [id number] / NA / [id number] Description:Implant pause pe rformed [employer] [id number] Procotyl Prime 36mm Liner Acetabular Sterile Latex Free - Sna - [id number] Implanted:Qty: 1 on 09/07/2021 by Raomn Hernandez MD at [facility] Other - see comments Right: Hip [employer] [id number] 10/13/2026 [id number] / NA / [id number] Description:Implant pause pe rformed [employer] [id number] ur Tl2 Hip 10 High Offset Stem Femoral Sterile Latex Free - Sna - [id number] Implanted:Qty: 1 on 09/07/2021 by Ramon Hernandez MD at [facility] Other - see comments Right: Hip [employer] [id number] 09/11/2028 [id number] / NA / [id number] Description:Implant pause pe rformed [employer] [id number] Procotyl 36mm 09/18 Large Head Femoral Biol[employer] Delta Sterile - Sna - [id number] Implanted:Qty: 1 on 09/07/2021 by Ramon Hernandez MD at [facility] Other - see comments Right: Hip [employer] [id number] 08/21/2029 [id number] / NA / [id number] Description:Implant pause pe rformed [employer] Triathlon Cruciate Retain Bead Knee Right 8 Component Femoral Pa 5517-F-802 - Sna - [id number] Implanted:Qty: 1 on 08/23/2022 by Humberto Nunez MD at [facility] Other - see comments Right: Knee [employer] [id number] 03/14/2027 5517-F-802 / NA / [id number] Description:Implant Pause Pe rformed [employer] Insert Tibial Triathlon 7 H10mm Knee Bearing Condylar Stabilize Sterile 1302-B-552-E - Sna - [id number] Implanted:Qty: 1 on 08/23/2022 by Humberto Nunez MD at [facility] Other - see comments Right: Knee [employer] [id number] 05/31/2027 5531-G-710 -E / NA / [id number] Description:Implant Pause Pe rformed [employer] Tritanium 35mm 10mm Asymmetric Knee Component Patellar Metal 5552-L-350 - Sna - [id number] Implanted:Qty: 1 on 08/23/2022 by Humberto Nunez MD at [facility] Other - see comments Right: Patella [employer] [id number] 06/26/2025 5552-L-350 / NA / [id number] Description:Implant Pause Pe rformed [employer] Triathlon Tritanium Knee 7 Baseplate Tibial 5536-B-700 - Sna - [id number] Implanted:Qty: 1 on 08/23/2022 by Humberto Nunez MD at [facility] Other - see comments Right: Knee [employer] [id number] 06/26/2027 5536-B-700 / NA / [id number] Description:Implant Pause Pe rformed [employer] Triathlon Tritanium Knee 7 Baseplate Tibial 5536-B-700 - Sn/A - [id number] Implanted:Qty: 1 on 11/27/2022 by Gerard Gutierrez MD at [facility] Other - see comments Left: Knee [employer] [id number] 09/05/2027 5536-B-700 / N/A / [id number] Description:Implant pause pe rformed. [employer] Triathlon Cruciate Retain Bead Knee Left 8 Component Femoral Pa 5517-F-801 - Sn/A - [id number] Implanted:Qty: 1 on 11/27/2022 by Gerard Gutierrez MD at [facility] Other - see comments Left: Knee [employer] [id number] 04/24/2027 5517-F-801 / N/A / [id number] Description:Implant pause pe rformed. [employer] Tritanium 35mm 10mm Asymmetric Knee Component Patellar Metal 5552-L-350 - Sn/A - [id number] Implanted:Qty: 1 on 11/27/2022 by Gerard Gutierrez MD at [facility] Other - see comments Left: Knee [employer] [id number] 08/05/2027 5552-L-350 / N/A / [id number] Description:Implant pause pe rformed. [employer] Insert Tibial Triathlon 7 H10mm Knee Bearing Condylar Stabilize Sterile 0251-J-576-E - Sn/A - [id number] Implanted:Qty: 1 on 11/27/2022 by Gerard Gutierrez MD at [facility] Other - see comments Left: Knee [employer] [id number] 09/09/2027 5531-G-710 -E / N/A / [id number] Description:Implant pause pe rformed. [employer] [id number] Dynasty Lineage 6.5mm 40mm Acetabular Screw Bone Biofoam - Sn/A - [id number] Implanted:Qty: 1 on 09/12/2020 by Ramon Hernandez MD at [facility] Screw Left: Hip [employer] 06/04/2026 [id number] / N/A / [id number] [employer] [id number] Dynasty Lineage 6.5mm 30mm Acetabular Screw Bone Biofoam - Sn/A - [id number] Implanted:Qty: 1 on 09/12/2020 by Ramon Hernandez MD at [facility] Screw Left: Hip [employer] [id number] 12/03/2027 [id number] / N/A / [id number] [employer] [id number] Dynasty Lineage 6.5mm 40mm Acetabular Screw Bone Biofoam - Sna - [id number] Implanted:Qty: 1 on 09/07/2021 by Ramon Hernandez MD at [facility] Screw Right: Hip [employer] [id number] 02/24/2029 [id number] / NA / [id number] Description:Implant pause pe rformed [employer] [id number] Dynasty Lineage 6.5mm 30mm Acetabular Screw Bone Biofoam - Sna - [id number] Implanted:Qty: 1 on 09/07/2021 by Ramon Hernandez MD at [facility] Screw Right: Hip [employer] [id number] 03/03/2029 [id number] / NA / [id number] Description:Implant pause pe rformed Explanted Type Area Poultry Packer Device Identifier Shelf Expiration Date Model / Serial / Lot [employer] 4mm 140mm Knee Straight Pin Fixation Sterile [id number] - Sn/A - [id number] Explanted:Qty: 1 on 11/27/2022 by Gerard Gutierrez MD at [facility] Other - see comments Left: Knee [employer] 10/16/2027 [id number] / N/A / [id number] Description:PROVISIONAL USE ONLY. [employer] 4mm 140mm Knee Straight Pin Fixation Sterile 086817 - Sna - [id number] Explanted:Qty: 1 on 08/23/2022 by Humberto Nunez MD at [facility] Pin Right: Knee [employer] [id number] 04/26/2027 346875 / NA / [id number] Description:For provisional fixation only; Not intended for implant Procedures Procedure Name Priority Date/Time Associated Diagnosis Comments PSA SCREEN Routine 07/05/2024 2:35 PM CDT Prostate cancer screening COLONOSCOPY 07/31/2023 8:49 AM CDT HEPATITIS C ANTIBODY Routine 06/23/2023 2:10 PM CDT Encounter for hepatitis C screening test for low risk patient from Last 3 Months or Most Recently Relevant to Health Maintenance Results * PSA screen (07/05/2024 2:35 PM CDT) PSA-Total 1.02 <=5.40 ng/mL Comment: Interpretive Data AGE SEX REFERENCE INTERVAL 0 minutes-150 years Female None 0 minutes-49 years Male None 50-59 years Male 0-3.90 60-69 years Male 0-5.40 70-79 years Male 0-6.20 80-150 years Male 0-6.20 The [employer] PSA Total assay procedure was used. Results from different manufacturers or methods may not be comparable. Serial testing should be performed using the same method. Current interpretive data last revised 22. Blood 07/05/2024 2:35 PM CDT 07/05/2024 3:00 PM CDT us Jas Correia MD LAB BLOOD ORDERABLES Fi nal Result [facility] Department [place] [address] * COLONOSCOPY (07/31/2023 8:49 AM CDT) Anatomical Region Laterality Modality Other Narrative Procedure Note Luann Mariano MD - 07/31/2023 8:49 AM CDT ENDOSCOPY LAB Patient Name: Mateo Bentley Procedure Date: 07/31/2023 8:49 AM Date of : 1960 Admit Type: Outpatient Age: 63 Gender: Male Attending MD: Luann Mariano M.D. Room: [facility] ENDOSCOPY ROOM 04 Note Status: Finalized Procedure: Colonoscopy Indications: Screening for colorectal malignant neoplasm Providers: Luann Mariano M.D. Referring MD: Jas Correia M.D. Medicines: Monitored Anesthesia Care Complications: No immediate complications. Estimated Blood Loss: Estimated blood loss: none. Procedure: Pre-Anesthesia Assessment: - Prior to the procedure, a History and Physicalwas performed, and patient medications and allergieswere reviewed. The patient's tolerance of previous anesthesia was also reviewed. The risks andbenefits of the procedure and the sedation options and risks were discussed with the patient. All questions were answered, and informed consent was obtained. Prior Anticoagulants: The patient has taken noanticoagulant or antiplatelet agents. ASA Grade Assessment: II -A patient with mild systemic disease. After reviewing the risks and benefits, the patient was deemed in satisfactory condition to undergo the procedure. The benefits, risks and alternatives of theprocedure and sedation were discussed and informed consentwas obtained. All questions were answered. Please referto the signed informed consent document in the medical record. The scope was passed under direct vision.The [id number] was introduced through the anusand advanced to the terminal ileum. The colonoscopy was performed without difficulty. The patient tolerated the procedure well. The quality of the bowel preparation was evaluated using the BBPS (BostonBowel Preparation Scale) with scores of: Right Colon = 3, Transverse Colon = 3 and Left Colon = 3 (entiremucosa seen well with no residual staining, smallfragments of stool or opaque liquid). The total BBPS score equals 9. The terminal ileum, ileocecal valve, appendiceal orifice, and rectum were photographed. Bowel prep was administered using a split dose. Findings: The perianal and digital rectal examinations were normal. The terminal ileum appeared normal. The colon (entire examined portion) appeared normal. External and internal hemorrhoids were found during retroflexion. The hemorrhoids were large. Impression: - The examined portion of the ileum was normal. - The entire examined colon is normal. - External and internal hemorrhoids. - No specimens collected. Recommendation: - Patient has a contact number available for emergencies. The signs and symptoms of potential delayed complications were discussed with thepatient. Return to normal activities tomorrow. Written discharge instructions were provided to thepatient. - Discharge patient to home (with escort). - Resume previous diet today. - Continue present medications. - Repeat colonoscopy with General GI in 10 yearsfor screening purposes. - In the unusual situation that you developabdominal pain, bleeding or other significant problems in the days following this procedure please call my officeat [phone] ([phone]) to speak to my nurse, Nan Alex. After hours and evenings please call [phone] and speak to the GI fellow telecommunications network engineer. Please tell them that Dr. Mariano did your procedureand that you were instructed to have the fellow call meor the physician covering for me to discuss the management of your condition. If you have an urgent problem, please go to the nearest emergency roomand have the ER doctor call my office during the day or the GI Fellow after hours and weekends to arrange admission or transfer to our facility. Electronically signed by Luann Mariano MD Luann Mariano M.D. 07/31/2023 9:37:20 AM Number of Addenda: 0 Note Initiated On: 07/31/2023 8:49 AM us Luann Mariano MD ENDOSCOPY PROCEDURES Final Resu lt * Hepatitis C antibody Blood (06/23/2023 2:10 PM CDT) Hep C Ab Non Reactive Non Reactive [facility] - 01 Comment: HCV antibody alone does not differentiate between previously resolved infection and active infection. Equivocal and Reactive HCV antibody results should be followed up with an HCV RNA test to support the diagnosis of active HCV infection. Blood 06/23/2023 2:10 PM CDT 06/23/2023 Narrative [facility] - 06/24/2023 8:16 AM CDT Performed at: - [address] [id number] Mine Technician: Angel Eastman PhD, Phone: [phone] Jas Correia MD LAB MICROBIOLOGY - GENE RAL ORDERABLES Final Result [facility] - 01 from Last 3 Months or Most Recently Relevant to Health Maintenance Insurance MEDICARE [facility] MEDICARE BLUE ACC CHOICE OOS BLUE ACCESS OOS MEDICARE [facility] MEDICARE [facility] Advance Directives For more information, please contact: [phone] Documents on File Type Date Recorded Patient Liquid Flavor Compounder Expl anation ADVANCE DIRECTIVE 08/26/2022 10:16 AM [facility] ER OF NURSING STAFFING COORDINATOR-MEDICAL * Full Code (Latest Code Status on File) Date Activated Date Inactivated Comments 07/31/2023 8:24 AM 07/31/2023 3:11 PM * Full Code Date Activated Date Inactivated Comments 11/27/2022 2:14 PM 11/28/2022 2:08 PM * Full Code Date Activated Date Inactivated Comments 08/23/2022 1:22 PM 08/24/2022 2:58 PM * Full Code Date Activated Date Inactivated Comments 09/07/2021 6:05 PM 09/08/2021 3:50 PM * Full Code Date Activated Date Inactivated Comments 09/12/2020 3:40 PM 09/13/2020 3:11 PM Care Teams Final Coat Sprayer Relationship Specialty Start Date End Date Jas Correia MD [address] [employer] [address] [address] PCP - General Endocrinology Diabetes & Metabolism 02/20/22 Genaro Dale MD [address] [employer] [address] [address] Consulting Physician Endocrinology Diabetes & Metabolism 07/31/20 Genaro Dale MD [address] [employer] [address] [address] Consulting Physician Endocrinology Diabetes & Metabolism 11/22/20
--- OUTSIDE RECORDS SUMMARY | 2025-06-29 01:48 | XMS_ITS | Encounter Summary ---
Author Organization [facility] Address [address] [place] [address] Care Team Providers Care Head Insulation Board Saw Operator Name Role Phone Riccardo Garcia MD Primary Care Provider [phone] Encounter Details Date Type Department Care Team (Latest Contact Info) Description 04/15/2008 Inpatient Historical HIS PATIENT IN A BED Ramon Hanna MD [address] [place] [address] Other Chest Pain; Syncope and Collapse; Esophageal Reflux; Unspecified Backache; Osteoarth NOS-Unspec; Unspecified Essential Hypertension; Encounter for Long-Term (Current) Use of Aspirin; Encounter for Long-Term (Current) Use of Other Medications Social History Tobacco Use Types Packs/Day Years Used Date Smoking Tobacco: Never Assessed Sex and Gender Information Value Date Recorded Sex Assigned at Not on file Legal Sex Male 5:36 AM CLAIMS CUSTOMER SERVICE REPRESENTATIVE Gender Identity Not on file Sexual Orientation Not on file documented as of this encounter Plan of Treatment Upcoming Encounters Date Type Department Care Team (Late st Contact Info) Description 08/18/2025 10:30 AM CLAIMS CUSTOMER SERVICE REPRESENTATIVE Office Visit [facility] - [address] - Ophthalmology [address] [place] [address] Kadi Villanueva OD [address] [place] [address] 02/14/2026 9:00 AM CDT Office Visit [facility] [address] [place] [id number] Ramon Hanna MD [address] [place] [address] documented as of this encounter Procedures Procedure Name Priority Date/Time Associated Diagnosis Comments TROPONIN Timed Study 04/16/2008 4:35 AM CDT HEMOGLOBIN A1C Routine 04/16/2008 4:35 AM CDT CBC WITH DIFFERENTIAL Timed Study 04/15/2008 8:35 PM CDT PTT Timed Study 04/15/2008 8:35 PM CDT PROTIME-INR Timed Study 04/15/2008 8:35 PM CDT TROPONIN Timed Study 04/15/2008 8:35 PM CDT COMPREHENSIVE METABOLIC PANEL Timed Study 04/15/2008 8:35 PM CDT documented in this encounter Results * HEMOGLOBIN A1C (04/16/2008 4:35 AM CDT) HEMOGLOBIN A1C 5.8 4.1 - 6.1 % of Hgb [facility] GLUCOSE, MEAN BLOOD 129 mg/dL [facility] Blood specimen (specimen) 04/16/2008 4:35 AM CDT 04/16/2008 5:06 AM CDT us Ramon Hanna MD CHEMISTRY ORDERABLES Final Resu lt [facility] CLIA# [id number] [address] [place] [address] * TROPONIN (04/16/2008 4:35 AM CDT) TROPONIN T <0.01 <=0.03 ng/mL [facility] TROPONIN T INTERP Negative [facility] Blood specimen (specimen) 04/16/2008 4:35 AM CDT 04/16/2008 5:06 AM CDT Ramon Hanna MD CHEMISTRY ORDERABLES Edited Performing Organization Address City/[facility]/ZIP Co de Phone Number [facility] CLIA# [id number] [address] [place] [address] * TROPONIN (04/15/2008 8:35 PM CDT) TROPONIN T <0.01 <=0.03 ng/mL [facility] TROPONIN T INTERP Negative [facility] Blood specimen (specimen) 04/15/2008 8:35 PM CDT 04/15/2008 8:42 PM CDT us Ramon Hanna MD CHEMISTRY ORDERABLES Edited Performing Organization Address City/[facility] Co de Phone Number [facility] CLIA# [id number] [address] [place] [address] * (ABNORMAL) COMPREHENSIVE METABOLIC PANEL (04/15/2008 8:35 PM CDT) CALCIUM 9.1 8.4 - 10.2 mg/dL [facility] ALBUMIN 4.4 3.4 - 4.8 g/dL [facility] CHLORIDE 101 96 - 108 mmol/L [facility] CREATININE 1.13 0.67 - 1.17 mg/dL [facility] ALT 14 0 - 41 U/L [facility] SODIUM 138 135 - 145 mmol/L [facility] ALKALINE PHOSPHATASE 69 40 - 129 U/L [facility] CO2 27 22 - 30 mmol/L [facility] BILIRUBIN TOTAL 0.7 0.2 - 1.0 mg/dL [facility] POTASSIUM 3.7 3.5 - 4.9 mmol/L [facility] TOTAL PROTEIN 7.4 6.3 - 8.6 g/dL [facility] GLUCOSE 114(H) 65 - 99 mg/dL [facility] AST 19 12 - 38 U/L [facility] BUN 16 6 - 20 mg/dL [facility] GFR, >60 >=60 mL/min/1. 7 sq meter [facility] GFR >60 >=60 mL/min/1. 7 sq meter [facility] Comment: Modification of Diet in Renal Disease (MDRD) study formula. Estimated GFR rate interpretative information for both Americans and non- Americans is available on the [facility] Intranet at: [email or web address] Select: Lab Policies and Procedures Select: Reference Ranges - GFR Blood specimen (specimen) 04/15/2008 8:35 PM CDT 04/15/2008 8:42 PM CDT Ramon Hanna MD CHEMISTRY ORDERABLES Edited [facility] CLIA# [id number] [address] [place] [address] * PTT (04/15/2008 8:35 PM CDT) PTT 31.8 24.4 - 36.4 Seconds [facility] Comment: PTT Therapeutic Range: Heparin Level PTT (seconds) <0.10 units/mL <53 0.10 - 0.30 units/mL 53 - 67 0.30 - 0.70 units/mL* 67 - 95* 0.70 - 1.00 units/mL 95 - 116 *corresponds to therapeutic range for unfractionated heparin Blood specimen (specimen) 04/15/2008 8:35 PM CDT 04/15/2008 8:42 PM CDT Ramon Hanna MD HEMATOLOGY ORDERABLES Final Res ult Performing Organization Address [facility] de Phone Number [facility] CLIA# [id number] [address] [place] [address] * PROTIME-INR (04/15/2008 8:35 PM CDT) PROTIME 14.0 12.7 - 15.1 Seconds [facility] INR 1.1 0.9 - 1.1 [facility] Comment: INR Therapeutic Range: Adult: 2.0 - 3.0 for pulmonary embolism or prophylaxis against venous thrombosis or systemic embolization. 2.0 - 3.0 for patients with tissue heart valves. 2.5 - 3.5 for patients with mechanical heart valves or post NH. Pediatric (12 years and under): 1.5 - 3.0 Although the target range in children is not well established, INR values of 1.5 - 3.0 are recommended for most patients. Higher values have been used in children with prosthetic cardiac valves and hereditary clotting disorders. [place] (<3 days) therapeutic ranges have not been established. Blood specimen (specimen) 04/15/2008 8:35 PM CDT 04/15/2008 8:42 PM CDT us Ramon Hanna MD HEMATOLOGY ORDERABLES Final Res ult Performing Organization Address City/[facility] Co de Phone Number [facility] CLIA# [id number] [address] [place] [address] * CBC WITH DIFFERENTIAL (04/15/2008 8:35 PM CDT) HEMOGLOBIN 14.7 13.6 - 16.5 g/dL [facility] RDW 12.9 11.5 - 14.5 % [facility] WBC 8.9 4.0 - 9.8 K/uL [facility] MCH 30.7 27.2 - 32.6 pg [facility] MPV 10.5 9.3 - 12.4 fL [facility] HEMATOCRIT 43.7 40.0 - 48.0 % [facility] RDW-STDEV 43.0 37.1 - 48.7 fL [facility] RBC 4.79 4.50 - 5.40 M/uL [facility] MCHC 33.6 31.5 - 35.5 % [facility] MCV 91.2 82.0 - 99.0 fL [facility] PLATELETS 264 140 - 350 K/uL [facility] EOSINOPHILS 1 0 - 7 % [facility] EOSINOPHIL ABSOLUTE 0.07 0.00 - 0.70 K/uL [facility] LYMPHOCYTES 29 16 - 45 % [facility] LYMPHOCYTE ABSOLUTE 2.53 0.70 - 4.50 K/uL [facility] BASOPHILS 1 0 - 2 % [facility] BASOPHILS ABSOLUTE 0.05 0.00 - 0.20 K/uL [facility] MONOCYTES 5 3 - 13 % [facility] MONOCYTE ABSOLUTE 0.44 0.10 - 1.30 K/uL [facility] NEUTROPHILS 65 45 - 70 % [facility] NEUTROPHIL ABSOLUTE 5.76 1.90 - 7.00 K/uL [facility] Blood specimen (specimen) 04/15/2008 8:35 PM CDT 04/15/2008 8:42 PM CDT Ramon Hanna MD HEMATOLOGY ORDERABLES Edited INTERFACE SYSTEM Refer to clinic/hospital department [facility] CLIA# [id number] [address] [place] [address] documented in this encounter Visit Diagnoses Diagnosis Other chest pain Syncope and collapse Esophageal reflux Backache, unspecified Osteoarthrosis, unspecified whether generalized or localized, unspecified site Unspecified essential hypertension Encounter for long-term (current) use of aspirin Encounter for long-term (current) use of other medications documented in this encounter Care Teams Head Insulation Board Saw Operator Relationship Specialty Start Date End Date Riccardo Garcia MD [address] [place] [address] PCP - General 04/27/09 documented as of this encounter
--- OUTSIDE RECORDS SUMMARY | 2025-06-29 01:48 | XMS_ITS | Encounter Summary ---
Author Organization [facility] Address [address] [place] [address] Care Team Providers Care Production Machine Tender Name Role Phone Unavailable Primary Care Provider Unavailabl e Encounter Details Date Type Department Care Team (Late st Contact Info) Description 05/24/2025 Lab Requisition [facility] Physician [facility] - DermPath Lab [address] [place] [address] Cherelle Cesar MD [address] [facility] [address] [place] [address] Social History Tobacco Use Types Packs/Day Years [...] Comments DERMATOPATHOLOGY Routine 05/24/2025 1:27 PM CDT documented in this encounter Results * DERMATOPATHOLOGY (05/24/2025 1:27 PM CDT) Case Report Dermatopathology Report Case: [id number] Authorizing Provider: Cherelle Cesar MD Collected: 05/24/2025 01:27 PM Ordering Location: [facility] - Received: 05/25/2025 07:12 AM DermPath Lab [...] characteristic determined by the Dermatopathology Laboratory at [facility], directed by Dr. David Reyes. These tests need not be, and therefore are not, approved by the [place] Food and Drug Administration. The tests are used for clinical purposes. Billing Codes Specimen Charges Stain Charges 50881 79599 1 1 12:51 PM CDT DERMATOPATHOLOGY LABORATORY Embedded Images 12:51 PM CDT DERMATOPATHOLOGY LABORATORY Pathology/Cytology TISSUE SPECIMEN FROM SKIN / Unknown 05/24/2025 1:27 PM CDT 05/25/2025 7:12 AM CDT Miscellaneous samples (specimen) TISSUE SPECIMEN FROM SKIN / Unknown 05/24/2025 1:27 PM CDT 05/25/2025 7:12 AM CDT us Cherelle Cesar MD LAB - PATHOLOGY/CYTOLOGY ORD ERABLES Final Result DERMATOPATHOLOGY LABORATORY [facility] - Department of Dermatology [facility] [address] [place] [address], [address] [phone] documented in this encounter Visit Diagnoses Not on filedocumented in this encounter
--- OUTSIDE RECORDS SUMMARY | 2025-06-29 01:48 | XMS_ITS | Encounter Summary ---
Author Organization [facility] Address [address] [place] [address] Phone Care Team Providers Care Precision Filer Hand Name Role Phone Riccardo Garcia MD Primary Care Provider [phone] Genaro Dale MD Unavailable [phone] Genaro Dale MD Unavailable [phone] Genaro Dale MD Primary Care Provider [phone] Jas Correia MD Primary Care Provider Encounter Details Date Type Department Care Team (Latest Contact Info) Description 12/04/2020 Orders Only [facility] Scanning, Provider Social History Tobacco Use Types Packs/Day Years Used Date Smoking Tobacco: Never Smokeless Tobacco: Never Alcohol Use Standard Drinks/Week Comments Yes 1 (1 standard drink = 0.6 oz pur e alcohol) 2-3 month Sex and Gender Information Value Date Recorded Sex Assigned at Not on file Legal Sex Male 2:48 AM 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 Gender Identity Not on file Sexual Orientation Not on file Occupation Industry Job Start Date Job End Date Disabled Not on file Not on file Not on file documented as of this encounter Plan of Treatment Not on file documented as of this encounter Procedures Procedure Name Priority Date/Time Associated Diagnosis Comments SLEEP LAB/STUDY - RESULT 12/04/2020 documented in this encounter Results * SLEEP LAB/STUDY - RESULT (12/04/2020) us Provider Scanning Final Result documented in this encounter Visit Diagnoses Not on filedocumented in this encounter Care Teams Precision Filer Hand Relationship Specialty Start Date End Date Riccardo Garcia MD [address] [address] PCP - General 11/30/12 12/10/20 Genaro Dale MD [address] [employer] [address] [address] PCP - General Endocrinology Diabetes & Metabolism 12/11/20 02/19/22 Jas Correia MD [address] [employer] [address] [address] PCP - General Endocrinology Diabetes & Metabolism 02/20/22 Genaro Dale MD [address] [address] [address] Consulting Physician Endocrinology Diabetes & Metabolism 07/31/20 Genaro Dale MD [address] [address] [address] Consulting Physician Endocrinology Diabetes & Metabolism 11/22/20 documented as of this encounter
--- OUTSIDE RECORDS SUMMARY | 2025-06-29 01:48 | XMS_ITS | Clinical Summary ---
Author Organization [facility] Address [address] [place] [address] Phone Care Team Providers Care Pharmacy Graduate Intern Name Role Phone Riccardo Garcia MD Primary Care Provider [phone] Allergies Active Allergy Reactions Criticality Noted Date Comments Morphine Itching Low 05/28/2011 Medications ESOMEPRAZOLE MAG TRIHYDRATE (NEXIUM PO) Take 40 mg by mouth daily. Active multivitamin (DAILY-EMRE) Oral Tab Take 1 Tab by mouth daily. Active levothyroxine (SYNTHROID) 75 mcg Oral tablet Take 100 mcg by mouth daily. Active zolpidem (AMBIEN) 10 mg tablet Take 12.5 mg by mouth nightly as needed. Active OMEGA-3 FATTY ACIDS (FISH OIL ORAL) Take by mouth. Activ e PSYLLIUM SEED, WITH DEXTROSE, (FIBER ORAL) Take by mouth. Ac tive FERROUS FUMARATE/VIT BCOMP&C (SUPER B COMPLEX ORAL) Take by mouth. A ctive TADALAFIL (CIALIS ORAL) Take by mouth. Activ e HYDROcodone-acetam inophen (NORCO) 10-325 mg Tablet Take by mouth. 8 Active aspirin (ECOTRIN EC) 81 mg Tablet, Delayed Release (E.C.) Take 81 mg by mouth daily. Active pantoprazole (PROTONIX) 40 mg Tablet, Delayed Release (E.C.) Take 1 Tablet by mouth daily. 4 Active losartan (COZAAR) 25 mg tablet TAKE 1 TABLET BY MOUTH EVERY DAY 90 Tablet 3 4 Active dorzolamide-timolo L (COSOPT) 22.3-6.8 mg/mL solution ADMINISTER 1 DROP IN BOTH EYES 2 TIMES DAILY. 30 mL 1 5 Active simvastatin (ZOCOR) 20 mg tabletIndications: Mixed hyperlipidemia Take 1 Tablet (20 mg) by mouth daily at bedtime. 90 Tablet 3 5 Active Active Problems Patient Care Coordination No te Formatting of this note migh t be different from the original. Human Resources File Clerk - Dr. Hanna ([facility] office) Rmaon Hanna MD- [facility] ([facility] Heart & Vascular ( [facility]) Problem Noted Date Diagnosed Date Mild coronary artery disease 11/24/2023 COVID toes 11/06/2021 Shortness of breath 02/15/2020 Hyperlipemia 05/31/2013 GERD (gastroesophageal reflux disease) 3 Varicose vein of leg 05/08/2010 Family history of cardiovascular disease 009 Dizziness 04/24/2009 Non-cardiac chest pain Benign essential HTN Encounters Date Type Department Care Team Description 06/21/2025 External Device Data ST[facility] ABSTRACTION Provider, Abstract 06/21/2025 External Device Data [facility] ABSTRACTION Provider, Abstract 05/24/2025 External Device Data [facility] ABSTRACTION Provider, Abstract 05/12/2025 2:00 PM CDT Office Visit [facility] Eye Specialists - [facility] [address] - Ophthalmology [address] [place] [address] Kadi Villanueva, OD Status post cataract surgery, right (Primary Dx); Status post cataract surgery, left; Primary open angle glaucoma (POAG) of right eye, moderate stage; Primary open angle glaucoma (POAG) of left eye, mild stage 05/11/2025 External Device Data STL ABSTRACTION Provider, Abstract 04/15/2025 Telephone [facility]ists - [facility] [address] - Ophthalmology [address] [facility] [address] [place] [address] Gail Doyle MD aching OS 04/12/2025 1:30 PM CDT Office Visit [facility] Eye Specialists [facility] [address] - Ophthalmology [address] [facility] [address] [place] [address] Kadi Villanueva, OD Status post cataract surgery, left (Primary Dx) 04/09/2025 Telephone [facility] Eye Specialists - [facility] [address] - Ophthalmology [address] [place] [address] [phone] Gail Doyle MD Vision Change 04/06/2025 11:00 AM CDT Office Visit [facility] Eye Specialists - [facility] [address] - Ophthalmology [address] [facility] [address] [place] [address] [phone] Lulu Duron, OD Status post cataract surgery, left (Primary Dx); Status post cataract surgery, right 04/05/2025 9:00 AM CDT Office Visit [facility] Eye Specialists - [facility] - Ophthalmology [address] [place] [address] [phone] Gail Doyle MD Status post cataract surgery, left (Primary Dx); Status post cataract surgery, right; Primary open angle glaucoma (POAG) of right eye, moderate stage; S/P LASIK (laser assisted in situ keratomileusis) of both eyes 04/04/2025 8:56 AM CDT - 04/04/2025 9:40 AM CDT Surgery [facility] [address] [place] [address] [address] [place] [address] Gail Doyle MD CATARACT EXTRACTION IOL INSERTION MANUAL +OMNI; CNA0T0 +19.50; MA60AC +18.50; MTA4U0 +17.00 04/04/2025 8:44 AM CDT Anesthesia Event [facility] [id number] [place] [address] Rd [address] [place] [address] Renae Coleman MD 04/04/2025 6:48 AM CDT - 04/04/2025 10:12 AM CDT Hospital Encounter [address] [place] [address] Gail Doyle MD Nuclear sclerotic cataract of left eye Discharge Disposition: Home or Self Care 03/29/2025 8:45 AM CDT Office Visit [facility] Eye Specialists - [facility] [address] - Ophthalmology [address] [facility] [address] [place] [address] Kadi Villanueva, OD Status post cataract surgery, right (Primary Dx) from Last 3 Months Social History Tobacco Use Types Packs/Day Years Used Date Smoking Tobacco: Never Smokeless Tobacco: Never Tobacco Cessation:Counseling Given: Not Answered Alcohol Use Standard Drinks/Week Comments Yes 0 (1 standard drink = 0.6 oz pur e alcohol) social Feeling Safe Answer Date Recorded Are you in a relationship wi th someone who hurts you emotionally and/or physically? 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 MANAGER Gender Identity Not on file Sexual Orientation Not on file Last Filed Vital Signs Vital Sign Reading Time Taken Comments Blood Pressure 117/80 04/04/2025 9:43 AM CDT Pulse 60 04/04/2025 9:43 AM CDT Temperature 36.4 C (97.5 F) 04/04/2025 9:43 AM CDT Respiratory Rate 16 04/04/2025 9:43 AM CDT Oxygen Saturation 97% 04/04/2025 9:43 AM CDT Inhaled Oxygen Concentration - - Weight 109.8 kg (242 lb) 04/04/2025 7:56 AM CDT Height 195.6 cm (6' 5) 04/04/2025 7:56 AM CDT Body Mass Index 28.7 04/04/2025 7:56 AM CDT Plan of Treatment Upcoming Encounters Date Type Department Care Team (Late st Contact Info) Description 08/18/2025 10:30 AM AUTOMOTIVE PARTS MANAGER Office Visit [facility] Eye Specialists - [facility] Crouch - Ophthalmology [address] [place] [address] Kadi Villanueva, OD [address] [facility] [address] [place] [address] 02/14/2026 9:00 AM CDT Office Visit [facility] Heart and Vascular At [facility] [address] [facility] [address] [place] [address] Ramon Hanna MD [address] [facility] [address] [place] [address] Health Maintenance Due Date Last Done Comments FIT-DNA Q 3 years 2003 FIT/FOBT Q 1 year 2003 Flex Sig/CT Colonography Q 5 years 2003 Pre-Diabetes and Diabetes Screening 04/16/2011 04/16/2008 RSV VACCINE (60+ or ) (1 - Risk 60-74 years 1-dose series) 2018 INFLUENZA VACCINE (#1) 2025 , 07/02/2023, 07/08/2022, Additional history exists COVID-19 Vaccine (2024-2 6 season) 2025 07/14/2024, 02/27/2021, 02/06/2021 DTAP/TDAP/TD VACCINES (4 - T d or Tdap) 03/08/2033 03/08/2023, 05/05/2016, 12/04/2006 COLORECTAL SCREENING 07/31/2033 07/31/2023, 07/31/2023, 05/06/2012 Colorectal Cancer Screening 07/31/2033 ZOSTER VACCINE Completed 11/18/2018, 09/08/2018 PNEUMOCOCCAL VACCINE 50+ YEARS Completed 06/23/2023 , 10/06/1997 Medical Devices Implanted Type Area Shingler Device Identifier Shelf Expiration Date Model / Serial / Lot Lens Iol Clareon 19.5 [id number] - [id number] Implanted:Qty: 1 on 03/21/2025 by Gail Doyle [place] [facility] [place] Right: Eye [facility] 08/19/2027 CNA0T0.195 / [id number] / Lens Iol Clareon 19.5 [id number] - [id number] Implanted:Qty: 1 on 04/04/2025 by Gail Doyle MD [place] [facility] [place] Left: Eye [facility] 10/11/2027 CNA0T0.195 / [id number] / Procedures Procedure Name Priority Date/Time Associated Diagnosis Comments WI XCAPSL CTRC RMVL INSJ IO LENS PROSTH W/O ECP 04/04/2025 8:56 AM CDT Nuclear sclerotic cataract of left eye Primary open angle glaucoma of left eye, mild stage HEMOGLOBIN A1C Routine 04/16/2008 4:35 AM CDT from Last 3 Months or Most Recently Relevant to Health Maintenance Results * HEMOGLOBIN A1C (04/16/2008 4:35 AM CDT) HEMOGLOBIN A1C 5.8 4.1 - 6.1 % of Hgb [facility] GLUCOSE, MEAN BLOOD 129 mg/dL [facility] Blood specimen (specimen) 04/16/2008 4:35 AM CDT 04/16/2008 5:06 AM CDT Ramon Hanna MD CHEMISTRY ORDERABLES Final Resu lt [facility] CLIA# [id number] [address] [place] [address] from Last 3 Months or Most Recently Relevant to Health Maintenance Insurance MEDICARE PART A AND B [employer] MEDICARE SUPP AESSI Advance Directives For more information, please contact: [phone] * Full Code (Latest Code Status on File) Date Activated Date Inactivated Comments 03/19/2021 7:48 AM 03/19/2021 2:52 PM * Full Code Date Activated Date Inactivated Comments 03/23/2015 8:09 AM 03/23/2015 2:40 PM Care Teams Pharmacy Graduate Intern Relationship Specialty Start Date End Date Riccardo Garcia MD [address] [address] PCP - General 04/27/09
--- OUTSIDE RECORDS SUMMARY | 2025-06-29 01:48 | XMS_ITS | Encounter Summary ---
Author Organization [facility] Address [address] [place] [address] Phone Care Team Providers Care Scientific Helper Name Role Phone Riccardo Garcia MD Primary Care Provider [phone] Reason for Visit * Reason Comments Medication Refill Encounter Details Date Type Department Care Team (Late st Contact Info) Description 02/08/2021 Refill [facility] - Family Medicine [facility] [address] [place] [address] Riccardo Garcia MD [address] [address] Medication Refill Social History Tobacco Use Types [...] Telephone Encounter - Riccardo Garcia MD - 02/09/2021 7:32 PM CDT Prescription approved. Please call in * Telephone Encounter - January Gill RN - 02/09/2021 3:44 PM CDT Medication failed the protocol, provider to review and approve the medication order if appropriate. Requested Prescriptions Pending Prescriptions Disp Refills tadalafil (CIALIS) 20 MG Tablet [Pharmacy Med Name: TADALAFIL 20 MG TABLET] 8 Tablet 6 Sig: TAKE ONE TABLET BY MOUTH ONCE DAILY NEEDED FOR ERECTILE DYSFUNCTION [facility] Not Delegated - Urology: Erectile Dysfunction Agents Failed - 02/08/2021 4:53 PM Failed - This refill cannot be delegated Passed - Valid encounter within last 12 months Past Office Visits Recent Outpatient Visits 1 month ago Hypothyroidism, unspecified type [facility] Riccardo Christensen MD 3 months ago COVID-19 [facility] Riccardo Christensen MD 3 months ago [facility] 7 months ago Hypothyroidism, unspecified type [facility] Riccardo Christensen MD 1 year ago Conjunctivitis, unspecified conjunctivitis type, unspecified laterality [facility] Riccardo Christensen MD Upcoming Appointments Future Appointments In 3 months Riccardo Garcia MD [facility] - Recent and Past Visits Recent Visits Date Type Provider Dept 01/02/21 Telemedicine Riccardo Garcia MD [facility] 10/23/20 Telemedicine Riccardo Garcia MD [facility] 10/17/20 Telemedicine Tor[facility] Jimenez APN, CNP [facility] 07/05/20 Office Visit Riccardo Garcia MD [facility] 02/02/20 Telemedicine Riccardo Garcia MD [facility] 12/21/19 Office Visit [facility] MD [facility] Showing recent visits within past 460 days with a meds authorizing provider and meeting all other requirements Future Appointments No visits were found meeting these conditions. Showing future appointments within next 90 days with a meds authorizing provider and meeting all other requirements Passed - Last BP in normal range BP Readings from Last 1 Encounters: 10/19/20 134/69 documented in this encounter Plan of Treatment Upcoming Encounters Date Type Department Care Team (Late st Contact Info) Description 11/10/2025 8:00 AM PROFESSOR OF CHEMICAL ENGINEERING Lab [facility] PHYSICIAN [email or web address] LAB [id number] [address] [facility] [place] Lab/Ancillary 11/17/2025 12:30 PM PROFESSOR OF CHEMICAL ENGINEERING Office Visit [facility] - Family Medicine - [place] [address] [facility] [place] [address] Riccardo Garcia MD [address] [address] documented as of this encounter Visit Diagnoses Not on filedocumented in this encounter Additional Health Concerns Infection Onset Date Last Indicated Resolved Time COVID - 19 09/30/2023 09/30/2023 10/10/2023 12:1 6 AM PROFESSOR OF CHEMICAL ENGINEERING Assessment Noted Time PHQ-9 Depression Total Score: 0 07/05/20 20 7:21 AM CDT documented as of this encounter Care Teams Scientific Helper Relationship Specialty Start Date End Date Riccardo Garcia MD #[address] [address] PCP - General Family Medicine 09/27/15 documented as of this encounter
[2025-06-29 01:50] VITALS: BP 126/96; PULSE 70; RESP 18; TEMP 36.4; O2SAT 100
--- NOTE | 2025-06-29 01:54 | ED.WOUNDLAC ---
HPI - Wound/Laceration General Chief Complaint: Extremity Injury, Lower Stated Complaint: Laceration Time Seen by Provider: 06/29/25 01:54 History of Present Illness HPI narrative: patient had laceration left foot 3:00 p.m. yesterday. Sutured, patient believes that the lacerations somehow got opened. He denies any new injury. Related Data Home Medications ?Medication ?Instructions ?Recorded ?Confirmed ?Last Taken ?Type hydrocodone 10 mg-acetaminophen tablet 03/08/23 Unknown History 325 mg tablet levothyroxine 100 mcg tablet mcg 03/08/23 Unknown History losartan 25 mg tablet mg 03/08/23 Unknown History pantoprazole 40 mg tablet,delayed mg PO 03/08/23 Unknown History release simvastatin 20 mg tablet mg 03/08/23 Unknown History Allergies Allergy/AdvReac Type Severity Reaction Status Date / Time morphine Allergy Intermediate Itching Verified 06/29/25 02:25 Review of Systems Review of Systems: All systems reviewed & are unremarkable except as noted in HPI and below PMFSH Past Medical History Medical History (Updated 06/30/25 @ 00:01 by Zahra Moeller) Hypertension Surgical History Surgical History (Updated 03/08/23 @ 09:42 by Hilda Clemons, LOOM SETTER) History of carpal tunnel surgery History of repair of right rotator cuff 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 Exam Narrative: General appearance: Well-developed, well-nourished Skin: Normal color Musculoskeletal: Left foot showed 1 cm laceration, [address], no gapping, no opening, no discharge, no bleeding Neurologic: Alert and oriented ?3, SLIP COVER MAKER is normal as tested, no gross motor deficit Course Vital Signs Vital signs: Vital Signs Temperature 36.4 C 06/29/25 01:50 Pulse Rate 70 06/29/25 01:50 Respiratory Rate 18 06/29/25 01:50 Blood Pressure 126/96 H 06/29/25 01:50 Pulse Oximetry 100 06/29/25 01:50 Oxygen Delivery Room Air 06/29/25 01:50 Temperature 36.4 C 06/29/25 01:50 Pulse Rate 70 06/29/25 01:50 Respiratory Rate 18 06/29/25 01:50 Blood Pressure 135/79 06/29/25 02:15 Pulse Oximetry 100 06/29/25 01:50 Oxygen Delivery Room Air 06/29/25 01:50 Critical Care Time Critical Care Time Critical Care Time: No Discharge Plan Discharge Clinical Impression: Visit for wound check Patient Disposition: Home Condition: Stable Instructions: Laceration (DC) Additional Instructions: Return if symptoms are worsening , call your family physician for appointment, take Tylenol as as needed for aches and pain, continue home medications. Patient Language: Colombian Prescriptions: No Action hydrocodone-acetaminophen 10-325 mg tablet levothyroxine 100 mcg tablet pantoprazole 40 mg tablet,delayed release (DR/EC) PO simvastatin 20 mg tablet losartan 25 mg tablet cephalexin 500 mg capsule 500 mg PO Q12H 5 Days Qty: 10 0RF mupirocin 2 % ointment 1 applic topical BID 10 Days Qty: 22 0RF Follow-up/Referrals: Jose,Riccardo Lopez MD [Non-Staff]
[2025-06-29] MEDS: NEOMYCIN/POLYMYXIN/BACITRACIN OINTMENT PACKET 1 PACKET (02:12)
[2025-06-29 02:15] VITALS: BP 135/79
== END 2025-06-29 02:15 | disposition home or self-care (01) ==
LOC: CHSED 02:04
PROVIDERS: Emergency Provider Emergency Medicine
DX: S91.312D Laceration without foreign body, left foot, subsequent encounter (principal); I10 Essential (primary) hypertension; X58.XXXD Exposure to other specified factors, subsequent encounter
CPT/HCPCS: 99282